=== PATIENT | female | born 1940 | race Caucasian/White ===

== ENCOUNTER 2017-06-13 13:02 | Outpatient (CLI) | payer MEDICARE, BC | END 2017-06-13 13:03 | disposition home or self-care (01) | LOC: BICMAMMO 13:02 | PROVIDERS: ATTEND Internal Medicine Rheumatology | DX: Z78.0 Asymptomatic menopausal state (principal); M85.80 Other specified disorders of bone density and structure, unspecified site | CPT/HCPCS: 77080 ==

== ENCOUNTER 2020-01-02 13:22 | Outpatient (CLI) | payer MEDICARE, BC ==
--- NOTE | 2020-01-02 14:36 | CT ---
LOW DOSE CT SCAN OF THE CHEST WITHOUT IV CONTRAST FOR LUNG CANCER SCREENIN01/02/20 HISTORY: 79-year-old female who has smoked for 50+ years and is a current smoker. No symptoms. COMPARISON: None. FINDINGS: There are a few scattered tiny noncalcified solid appearing nodules in either lung measuring up to 3 mm. No pleural or pericardial effusions are seen. There are vascular calcifications without evidence of a neurysmal dilatation of the thoracic aorta. There are degenerative changes in the spine. IMPRESSION: Lung RADS category 2 - benign. RECOMMENDATIONS: Continued annual screening with LDCT in 12 months. POS: OFF
== END 2020-01-02 13:23 | disposition home or self-care (01) ==
LOC: BICCT 13:22
PROVIDERS: ATTEND Family Medicine
DX: Z12.2 Encounter for screening for malignant neoplasm of respiratory organs (principal); F17.210 Nicotine dependence, cigarettes, uncomplicated
CPT/HCPCS: G0297